=== PATIENT | male | born 1985 | race Caucasian/White ===

== ENCOUNTER 2020-04-07 20:17 | Emergency (ER) | payer OTHER ==
[~2020-04-07] VITALS: Ht 182.9 cm; Wt 88.2 kg
[2020-04-07 20:25] VITALS: BP 130/86; TEMP 97.1
[2020-04-07 21:15] VITALS: PULSE 77
== END 2020-04-07 21:15 | disposition home or self-care (01) ==
LOC: COL.ER 20:17
DX: S92.515A Nondisplaced fracture of proximal phalanx of left lesser toe(s), initial encounter for closed fracture (principal); W23.1XXA Caught, crushed, jammed, or pinched between stationary objects, initial encounter; Y92.009 Unspecified place in unspecified non-institutional (private) residence as the place of occurrence of the external cause